=== PATIENT | female | born 1960 | race Caucasian/White ===

== ENCOUNTER → 2016-06-30 | Outpatient (CLI) | payer BC, OTHER ==
[~2016-06-30] MED LIST: COLACE100 MG PO; HYDROCODONE-AP1 EAC6 PO; IMIPRAMINE HCL25 MG PO; ZYRTEC10 MG PO
== END ==
LOC: RAD 08:00
DX: Z12.31 Encounter for screening mammogram for malignant neoplasm of breast (principal)

== ENCOUNTER → 2017-08-29 | Outpatient (CLI) | payer OTHER | LOC: RAD 14:37 | DX: Z12.31 Encounter for screening mammogram for malignant neoplasm of breast (principal) ==

== ENCOUNTER → 2019-01-29 | Outpatient (CLI) | payer OTHER | LOC: BC 11:58 | DX: Z12.31 Encounter for screening mammogram for malignant neoplasm of breast (principal) ==